=== PATIENT | female | born 1945 | race Caucasian/White ===

== ENCOUNTER 2018-02-02 06:24 | Inpatient (IN) | payer MEDICARE ==
[~2018-02-02] VITALS: Ht 154.9 cm; Wt 68.5 kg
[~2018-02-02 06:24] MED LIST: AMOX500T PO
[2018-02-02] MEDS ORDERED: LACTATED RINGER'S 1000 ML IV PRN (07:30)
[2018-02-02] MEDS ORDERED: VANCOMYCIN 1000 MG/NS 250 ML (for <70 kg) IV SCH ×2 (07:30)
[2018-02-02] MEDS ORDERED: POVIDONE IODINE 5% (ANTISEPSIS KIT) 4 APPLICATIONS EACH NARE PRN (07:30)
[2018-02-02] MEDS ORDERED: CHLORHEXIDINE GLUCONATE 2 % 1 PACK (2 CLOTHS) TOPICAL PRN (07:30)
[2018-02-02] MEDS ORDERED: METOPROLOL TARTRATE 25 MG TAB PO PRN (07:30)
[2018-02-02] MEDS ORDERED: SODIUM CHLORID 0.9% 500 ML IV PRN (07:30)
[2018-02-02] MEDS ORDERED: ceFAZolin 2 GM PREMIX 50 ML IV SCH (07:30)
[2018-02-02] MEDS ORDERED: CHLORHEXIDINE GLUCONATE 4% SOLN 120 ML BTL TOPICAL SCH (07:30)
[2018-02-02] MEDS ORDERED: SULI200T PO (07:52)
[2018-02-02] MEDS ORDERED: BIOT10TA PO (07:52)
[2018-02-02] MEDS ORDERED: BIOTCAP PO (07:52)
[2018-02-02] MEDS ORDERED: TRANEXAMIC ACID INJ 685 MG in SODIUM CHLORIDE 0.9% INJ 100 ML IV SCH (08:00)
[2018-02-02] MEDS ORDERED: EXPAREL PERI-ARTICULAR INJECTION (TOTAL VOL. 60 ML) P-ARTICULR SCH ×2 (08:00)
[2018-02-02] MEDS ORDERED: VANCOMYCIN 1 GM/200 ML INJ 200 ML IV ONE (08:06)
[2018-02-02] MEDS ORDERED: BUPIVACAINE/EPINEPHRINE 0.5% 50 ML VIAL ONE (09:29)
[2018-02-02] MEDS ORDERED: BUPIVACAINE/EPINEPHRINE 0.5% PF 10 ML VIAL ONE ×2 (09:29→10:03)
[2018-02-02] MEDS ORDERED: ceFAZolin INJ 1,000 MG VIAL ONE (09:53)
--- NOTE | 2018-02-02 11:43 | PD.OP ---
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 Despite extensive conservative care this patient continues to be painful and now presents for surgical treatment. NOTE: nAali Espinla PA-C was present for the entire surgical procedure as my orthopaedic physician assistant. In my medical opinion her skill and care was necessary for the proper management of this patient. COMPONENTS: COMPANY: [employer] CUP: [place], 52, 100 series, gription surface LINER: Altrx 32, neutral STEM: [place], size 12, high offset, hydroxyapatite-coated HEAD: Metal, 32, +1, /14 taper PROCEDURE: This patient was brought to the operating room and anesthetized in the supine position and positioned on the fracture table with both legs held extended. The right hip and leg was scrubbed with alcohol followed by Hibiclens followed by ChloraPrep and draped sterilely. Antibiotics were given within routine time window and a timeout was done. A 4 inch incision was made starting 2 cm distal and 2 cm lateral to the anterior superior iliac spine. The fascia nirmala was opened longitudinally. The interval between the fascia nirmala and the rectus was opened down to the capsule of the hip joint. Retractors were positioned allowing good visualization of the capsule. This was opened longitudinally and flaps were created. Stay sutures were utilized. Exposure was excellent. The neck was cut at the proper location using fluoroscopy as a guide. The head was removed. Deep retractors were positioned allowing good visualization of the acetabulum. Acetabulum was deepened down to the floor starting with a proper size reamer and reaming up to 51 mm. A trial was utilized. Fluoroscopy was used to check position and confirmed satisfactory alignment. The rim was reamed with a 52 mm reamer and the final cup was positioned in approximately 20 of anteversion and 40-45 of abduction. Position was satisfactory. A single hole eliminator was positioned followed by the final liner. The lifting hook was utilized. The leg was dropped to the floor, maximally externally rotated and brought across the midline. Retractors were positioned. A box osteotome was utilized followed by progressive broaching to the proper stem size. Trial reduction showed excellent alignment and fit. With 60 of external rotation the leg was dropped to the floor without evidence of anterior subluxation. The wound was irrigated. The final stem was inserted and was found to be very stable. The final reduction using the final head. Stability was as previously noted. Intraoperative x-rays were taken. The wound was irrigated copiously. Hemostasis was controlled. Local anesthesia was utilized. The capsule was repaired with #2 Tycron sutures. The fascia nirmala was repaired with running 0 PDS on a loop. Subcutaneous tissue was approximated with 2-0 Vicryl and skin with running intradermal 3-0 Vicryl followed by Steri-Strips. A sterile dressing was applied. The patient was awakened and taken to the recovery room in satisfactory condition. FINDINGS: There was severe osteoarthritis of the right hip with some evidence of collapse. Likely this is related to avascular necrosis or severe inflammatory arthritis. There was no complication that was appreciated. Usman Camp MD Feb 02, 2018 11:43
[2018-02-02] MEDS ORDERED: MORPHINE SULFATE 8 MG/ML INJ IM PRN (11:45)
[2018-02-02] MEDS ORDERED: diphenhydrAMINE HCL 25 MG CAP PO PRN (11:45)
[2018-02-02] MEDS ORDERED: ONDANSETRON HCL 4 MG/2 ML VIAL IVP PRN (11:45)
[2018-02-02] MEDS ORDERED: ASPIRIN 81 MG CHEW TAB CHEW ONE (11:45)
[2018-02-02] MEDS ORDERED: ACETAMINOPHEN/HYDROcodone 325 MG/10 MG TAB PO PRN ×2 (11:45)
[2018-02-02] MEDS ORDERED: ASPI1TAB57 PO (11:46)
[2018-02-02] MEDS ORDERED: HYDR-3583 PO (11:47)
--- NOTE | 2018-02-02 11:48 | HHI.FF ---
Face to Face Verification Diagnosis: (1) Osteoarthritis of right hip Physical Therapy Gait training Hip: Total hip, Protocol: Right Right LE Weight Bearing: WB as tolerated Nursing RN: 3 days/week x 2 weeks Nursing: Other Dressing Changes: Do not change dressing I have seen patient Alma Delia Nur on 02/02/18. My clinical findings support the need for the requested home health care services because: Limited ability to care for self High risk of falls I certify that my clinical findings support that this patient is homebound because: Unsteady gait/balance Usman Camp MD Feb 02, 2018 11:48
[2018-02-02] MEDS ORDERED: ONDANSETRON HCL 4 MG/2 ML VIAL IV ONE (12:00)
[2018-02-02] MEDS ORDERED: PHENYLEPH/NS 1000 MCG/10 ML SYR IV ONE (12:00)
[2018-02-02] MEDS ORDERED: ROCURONIUM INJ 50 MG/5 ML SYRINGE IV PUSH ONE (12:00)
[2018-02-02] MEDS ORDERED: PROPOFOL 200 MG/20 ML AMP IV ONE (12:00)
[2018-02-02] MEDS ORDERED: KETOROLAC TROMETHAMINE 30 MG/ML (IVP) VIAL IV PUSH ONE (12:00)
[2018-02-02] MEDS ORDERED: ePHEDrine/NS 25 MG/5 ML SYRINGE IV ONE (12:00)
[2018-02-02] MEDS ORDERED: DEXAMETHASONE SOD PHOS 4 MG/ML VIAL IV ONE (12:00)
[2018-02-02] MEDS ORDERED: Post-op Orders (for Pharmacy) XX ONE (12:00)
[2018-02-02] MEDS ORDERED: LIDOCAINE HCL 1% PF 5 ML SYRINGE OTHER ONE (12:00)
[2018-02-02] MEDS ORDERED: SODIUM CHLORIDE 0.9% 10 ML VIAL IV ONE (12:00)
[2018-02-02] MEDS ORDERED: DO NOT ADM ANY ANTICOAGULANT DRUGS PRN (12:03)
[2018-02-02] MEDS ORDERED: MORPHINE SULFATE 4 MG/ML INJ ONE (12:09)
[2018-02-02] MEDS: LACTATED RINGER'S 1000 ML INJ 1,000 ML IV SCH (12:30)
[2018-02-02 16:00] VITALS: BP 134/71; PULSE 80; RESP 16; TEMP 92.2; O2SAT 98
[2018-02-02 19:40] VITALS: BP 130/65; PULSE 92; RESP 18; TEMP 97.8; O2SAT 95
[2018-02-02] MEDS ORDERED: SULINDAC 200 MG PO SCH ×2 (21:00)
[2018-02-02] MEDS ORDERED: SENNOSIDES 8.6 MG TAB PO SCH (21:00)
--- NOTE | 2018-02-02 21:04 | RADRPT ---
EXAM DATE: 02/02/2018 8:45 PM EDT AGE/SEX: 72 years / Female INDICATIONS: Right anterior hip replacement. CLINICAL DATA: This is the patient's initial encounter. Patient reports that signs and symptoms have been present for 1 day and indicates a pain score of Nonresponsive. MEDICAL/SURGICAL HISTORY: Non-responsive. Non-responsive. COMPARISON: No prior exams available for comparison. FINDINGS: 2 fluoroscopic images of the right hip demonstrate right hip arthroplasty in place. Arthroplasty comp onents are in anatomic alignment and well positioned. No significant bony fracture. CONCLUSION: 1. Right hip arthroplasty, as above. Electronically signed by: Ariel Soto MD 02/02/2018 9:02 PM EDT
[2018-02-02] MEDS: ASPIRIN EC 81 MG TABEC PO SCH (21:24)
[2018-02-02] MEDS: MAGNESIUM HYDROXIDE SUSP 30 ML CUP PO SCH (21:24)
[2018-02-03] VITALS: BP 114/59; PULSE 89; RESP 18; TEMP 97.9; O2SAT 97
[2018-02-03] MEDS: LACTATED RINGER'S 1000 ML INJ 1,000 ML IV SCH ×2 (00:30→11:32)
[2018-02-03 04:00] VITALS: BP 137/68; PULSE 89; RESP 18; TEMP 98.4; O2SAT 97
[2018-02-03 07:23] LABS: HEMATOCRIT 34.8 % (35.0-46.0); HEMOGLOBIN 11.6 GM/DL (11.6-15.3)
[2018-02-03 08:00] VITALS: BP 145/63; PULSE 80; RESP 17; TEMP 98.1; O2SAT 97
[2018-02-03] MEDS: ASPIRIN EC 81 MG TABEC PO SCH (08:55)
[2018-02-03] MEDS: MAGNESIUM HYDROXIDE SUSP 30 ML CUP PO SCH (08:55)
--- NOTE | 2018-02-03 13:00 | HHI.DCPOC ---
Discharge Care Plan Diagnosis: (1) Osteoarthritis of right hip Your Health Problems Are: Difficulty with ADL Incision/Drains Swelling Goals to Promote Your Health * To prevent worsening of your condition and complications * To maintain your health at the optimal level Directions to Meet Your Goals Take your medications as prescribed Follow your dietary instruction Follow activity as directed Keep your appointments as scheduled Take your immunizations and boosters as scheduled If your symptoms worsen call your PCP, if no PCP go to Urgent Care Center or Emergency Room Smoking is Dangerous to Your Health. Avoid second hand smoke Call the 24-hour hour crisis hotline for domestic abuse at Anali Espinal Feb 03, 2018 12:59
--- NOTE | 2018-02-03 13:01 | HHI.DS ---
Discharge Summary Admission Date Feb 02, 2018 at 06:24 Discharge Date: Feb 03, 2018 Admitting Diagnosis see below Diagnosis: (1) Osteoarthritis of right hip Diagnosis: Principal ICD Codes: M16.11 - Unilateral primary osteoarthritis, right hip Procedures Right total hip arthroplasty, direct anterior approach Brief History This is a 72 year old female patient with a history of bilateral hip pain. She underwent left total hip arthroplasty in 2004 with good success. Her right hip pain began to increase in 2014. She sought out treatment in 2016. Xrays showed advancing arthritis of her right hip. Physical therapy was prescribed alongside prescription diclofenac. She did well on the diclofenac for several months. She was later placed on Suldinac when the diclofenac no longer provided relief. She began having increased stiffness about her hip despite decreasing activities. A limp slowly developed. Eventually right total hip arthroplasty was recommended and she elected to move forward with treatment. CBC/BMP: 02/03/18 0617 Significant Findings Laboratory Tests Test 02/03/18 06:17 Hematocrit 34.8 % (35.0-46.0) Hospital Course Surgical treatment was performed on the day of admission without complication. She recovered well in PACU and was transferred to the orthopaedic floor. Pain was controlled with IV and oral medications. She was compliant with physical therapy and all anterior total hip precautions. After 1 day she was found to be stable and discharged home with home health care. She was educated to continue to ice the operative limb twice daily, to pursue a high fiber diet for 5-7 days , and to continue therapy as directed. She was given prescriptions of ASA 81mg twice daily and R[place] 10mg as needed for pain. Pt Condition on Discharge: Stable Discharge Disposition: Disch w/ Home Health Serv Discharge Instructions Diet Instructions: As Tolerated, No Restrictions, High Fiber Diet Activities You Can Perform: Weight Bearing as Erinn Activities to Avoid: Strenuous Activity Additional Activity Instruc.: Anterior alex protocol New Medications: Aspirin DR (Aspirin 81) 81 Mg Tabdr 81 MG PO BID for Prevent Blood Clot, #60 TAB 0 Refills Hydrocodone/Acetaminophen (Hydrocodone-Acetamin 10-325 mg) 10 Mg-325 Mg Tablet 1 TAB PO Q4H PRN for Pain, #42 TAB Continued Medications: Biotin (Biotin) 10 Mg Tab 10 MG PO DAILY for Nutritional Supplement, #1 BOTTLE 0 Refills Biotin (Biotin) 5 Mg Cap 2.5 MG PO for Nutritional Supplement, #1 BOTTLE 0 Refills Sulindac (Sulindac) 200 Mg Tab 200 MG PO BID for Pain Management, #60 TAB 0 Refills Anali Espinal Feb 03, 2018 13:01
--- NOTE | 2018-02-03 13:04 | PD.ORT.PN ---
Subjective Subjective Remarks She is doing well. She has alot of stiffness in the right hip and aching into the thigh. She denies any pain below the knee. She has questions about surgery. No new CP or SOB. Objective Vitals Vital Signs Date Time Temp Pulse Resp B/P (MAP) Pulse Ox O2 Delivery O2 Flow Rate FiO2 02/03/18 08:00 98.1 80 17 145/63 (90) 97 02/03/18 04:00 98.4 89 18 137/68 (91) 97 02/03/18 00:00 97.9 89 18 114/59 (77) 97 02/02/18 19:40 97.8 92 18 130/65 (86) 95 02/02/18 16:00 92.2 80 16 134/71 (92) 98 02/02/18 14:00 68 15 133/67 (89) 100 Nasal Cannula 2 02/02/18 13:30 65 12 134/67 (89) 100 Nasal Cannula 2 I/O 02/02/18 02/02/18 02/02/18 02/03/18 02/03/18 02/03/18 07:00 15:00 23:00 07:00 15:00 23:00 Intake Total 950 ml 600 ml Output Total 200 ml Balance 750 ml 600 ml Intake Oral 600 ml Other 950 ml Output Urine Total 0 ml Estimated Blood Loss 200 ml # Voids 3 Result Diagram: 02/03/18 0617 Procedures Right total hip arthroplasty, direct anterior approach Objective Remarks 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 Ok to d/c home today w [facility] today. Pt states all DME has been ordered. She is still waiting on bedside commode. PT - WBAT RLE. Anterior jillian precautions. Hold dressing changes unless saturated. ASA 81mg for dvt prophylaxis. PO pain meds as needed. Follow up in 2 weeks as scheduled. F2F signed. Anali Espinal Feb 03, 2018 13:04
== END 2018-02-03 16:10 | disposition home health service (06) | DRG 470 ==
LOC: HSDI 06:24 → N06A 14:52
PROVIDERS: ADMIT Orthopaedic Surgery Orthopaedic Surgery of the Spine; ATTEND Orthopaedic Surgery Orthopaedic Surgery of the Spine
PROC: 0SR902Z Replacement of Right Hip Joint with Metal on Polyethylene Synthetic Substitute, Open Approach (ICD-10-PCS; principal; 2018-02-02 09:22)
DX: M16.11 Unilateral primary osteoarthritis, right hip (principal); M87.051 Idiopathic aseptic necrosis of right femur; M17.11 Unilateral primary osteoarthritis, right knee; Z90.710 Acquired absence of both cervix and uterus; Z96.642 Presence of left artificial hip joint
CPT/HCPCS: 73502; 76000; 85014; 85018; 86850; 86900; 86901; 86920; 94150; C1776; J0690; J1100; J1885; J2270; J2370; J2405; J3010; J3370; J7050; J7120